=== PATIENT | male | born 1995 | race African-American/Black ===

== ENCOUNTER 2020-12-07 19:14 | Emergency (ER) | payer OTHER ==
[~2020-12-07] VITALS: Ht 185.4 cm; Wt 100.0 kg
[2020-12-07 20:20] VITALS: BP 118/63
== END 2020-12-07 20:15 | disposition home or self-care (01) ==
LOC: ER 19:14
DX: F41.0 Panic disorder [episodic paroxysmal anxiety] (principal); R03.0 Elevated blood-pressure reading, without diagnosis of hypertension
CPT/HCPCS: 93005; 99283